=== PATIENT | female | born 1960 | race Caucasian/White ===

== ENCOUNTER 2017-04-27 11:14 | Emergency (ER) | payer MEDICARE ==
--- NOTE | 2017-04-27 13:14 | UC ---
Lower Extremity/Ankle HPI - HPI Summary HPI Summary: 57 yo F with hx RA and fibromyalgia, followed by shuttler car Dr. Belcher, who also sees Dr. Dickinson for pain control, states she has had increasing sharp, aching pain that feels like a muscle cramp on her bilateral groins and inner thighs radiating to her knees. No known injury or fall. Pt states when she sits she does not have pain, but when she stands or walks the pain is unbearable. Pt is taking flexeril, oxycodone, meloxicam and sulfasalazine for the pain without relief. No vag discharge or bleeding or external irritation. No urinary sxs. Pt has a daughter who is a heroin addict and she has small grandchildren in the house so she does not like to keep alot of narcotics around the house. - History of Current Complaint Chief Complaint: UCLowerExtremity Stated Complaint: INNER THIGH PAIN BOTH LEGS Time Seen by Provider: 04/27/17 13:12 Hx Obtained From: Patient Hx Last Menstrual Period: years ago Onset/Duration: Gradual Onset, Lasting Weeks, Still Present Severity Initially: Moderate Severity Currently: Severe Pain Intensity: 8 Pain Scale Used: 0-10 Numeric Aggravating Factor(s): Standing, Ambulation Alleviating Factor(s): Rest Able to Bear Weight: Yes - Risk Factors Septic Arthritis Risk Factor: Pre-existing Joint Disease - Allergies/Home Medications Allergies/Adverse Reactions: Allergies Allergy/AdvReac Type Severity Reaction Status Date / Time Penicillins Allergy Hives, Verified 04/27/17 11:56 throat swellings Prochlorperazine Allergy Hallucinati Verified 04/27/17 11:56 [From Compazine] ons Cortisone AdvReac Weight Verified 04/27/17 11:56 gain, problems healing Home Medications: Home Medications sulfaSALAzine TAB* [Azulfidine TAB*] 1,000 mg PO BID 04/27/17 [History Confirmed 04/27/17] PMH/Surg Hx/FS Hx/Imm Hx Previously Healthy: No - RA, fibromyalgia - Surgical History Surgical History: Yes Surgery Procedure, Year, and Place: c-sections: ,, . 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 CARDIAC CATH - NO STENT, SHOWED SMALL VESSELLS, OTHERWISE NORMAL- 07/2013. AGE 8, NECK SURGERY FOR CAT SCRATCH FEVER, [place]. Hand surgery for trigger thumb - Family History Known Family History: Positive: Hypertension - Social History Occupation: Unemployed Lives: With Family Alcohol Use: Weekly Alcohol Amount: 3-4 PER WEEK Substance Use Type: None Smoking Status (MU): Former Smoker Amount Used/How Often: PACK A DAY Have You Smoked in the Last Year: No When Did the Patient Quit Smoking/Using Tobacco: 1989 Review of Systems Constitutional: Negative Skin: Negative Eyes: Negative ENT: Negative Respiratory: Negative Cardiovascular: Negative Gastrointestinal: Negative Genitourinary: Negative Motor: Negative Neurovascular: Negative Musculoskeletal: Arthralgia, Myalgia Neurological: Negative Psychological: Negative All Other Systems Reviewed And Are Negative: Yes Physical Exam Triage Information Reviewed: Yes Appearance: Well-Appearing, Well-Nourished, Pain Distress Vital Signs: Initial Vital Signs Temp 97.5 F 04/27/17 11:52 Pulse 73 04/27/17 11:52 Resp 14 04/27/17 11:52 BP 142/87 04/27/17 11:52 Pulse Ox 99 04/27/17 11:52 Vital Signs Reviewed: Yes Eyes: Positive: Conjunctiva Clear ENT: Positive: Normal ENT inspection Neck: Positive: Supple, Nontender, No Lymphadenopathy Respiratory: Positive: Lungs clear, Normal breath sounds, No respiratory distress Cardiovascular: Positive: RRR, No Murmur, Pulses Normal, Brisk Capillary Refill Abdomen Description: Positive: Nontender, Soft, Other: - external genitalia normal Bowel Sounds: Positive: Present Musculoskeletal: Positive: Strength Intact, ROM Intact, Other: - pain on palpation left lateral hip and bilateral groin creases Neurological: Positive: Alert, Muscle Tone Normal Psychological Exam: Normal Skin: Negative: rashes, breakdown, significant lesion(s) Lower Extremity Course/Dx - Course Course Of Treatment: UA with 1 + leuks, sent for culture. Will not treat as pt does not have UTI sxs. Pt given toradol 30mg with relief, partial. xrays show no fx, DJD at sacroiliac. - Differential Dx/Diagnosis Differential Diagnosis/HQI/PQRI: Arthritis, Fracture (Closed), Sprain, Strain Provider Diagnoses: bilateral groin and thigh pain. Rheumatoid arthritis. fibromyalgia. HTN in poor control Discharge - Discharge Plan Condition: Stable Disposition: HOME Prescriptions: fentaNYL PATCH 12 MCG/HR * [Duragesic Patch 12 Mcg/Hr *] 12 mcg TRANSDERM Q72H # 3 patch MDD 09/13 patch Patient Education Materials: Sacroiliitis (ED), Arthralgia (ED) Referrals: Mik Dillard [Medical Doctor] - 4 Days (keep your scheduled appointment ) Lori Troy MD [Primary Care Provider] - Eliu Dickinson DO [Doctor of Osteopathy] - As Soon As Possible (try to get an acute appointment for this acute exacerbation of your pain ) Additional Instructions: Dr. Covarrubias has prescribed a fentanyl patch to try to tide you through this acute episode of pain. We have discussed your pain contract with Dr. Dickinson and do not intend this prescription to violate the pain contract. Keep your appointment with Dr. Belcher for Tu05/02/17. Follow up with Dr. Dickinson as soon as possible. You may need to decrease or discontinue the oxycodone while you are on the fentanyl patch if you become too drowsy. You were given an injection of ketorolac (Toradol) 30mg at 1:45pm with some relief. Your urine showed 1+ leukocytes. A urine culture was sent. We will notify you if you need antibiotics based on that result. A UTI could be contributing to your pain. Your xrays of your hips and pelvis showed no fractures. There is degenerative disease of your right sacroiliac joint. This can definitely be contributing to your pain. You may return to urgent care if you have any new or worsening symptoms.
[2017-04-27] MEDS ORDERED: Ketorolac INJ* 30 MG/ML 1 ML VIAL IM ONE (13:31)
[2017-04-27 14:00] VITALS: BP 138/72
--- NOTE | 2017-04-27 14:10 | RAD ---
Indication: Bilateral hip pain, rheumatoid arthritis. 2 views of the right hip and an AP view of the pelvis demonstrates no fracture. Pelvic ring is intact. Degenerative changes of the right sacroiliac joint is noted. IMPRESSION: Degenerative changes of the right sacroiliac joint. No fracture of either hip is noted.
== END 2017-04-27 14:37 | disposition home or self-care (01) ==
LOC: UCCORT 11:14
DX: M79.652 Pain in left thigh (principal); M79.651 Pain in right thigh; R10.30 Lower abdominal pain, unspecified; M06.9 Rheumatoid arthritis, unspecified; M79.7 Fibromyalgia; I10 Essential (primary) hypertension; Z88.0 Allergy status to penicillin; Z87.891 Personal history of nicotine dependence
CPT/HCPCS: 73523; 81003; 87086; 96372; 99212; G0463; J1885

== ENCOUNTER 2019-07-27 14:43 | Emergency (ER) | payer MEDICARE ==
--- OUTSIDE RECORDS SUMMARY | 2019-07-27 15:12 | XMS REPORT | Continuity of Care Document ---
:1960 External Reference #:[id number] Author Name Janel Gustafson NP Address [address] [place] [address] Care Team Providers Name Role Phone Lori Troy MD Care Team Information Workforce Development Vice President [phone] Ravindra Emanuel MD - Family Medicine Care Team Information Workforce Development Vice President Problems Description No Information Available Social History Type Date Description Comments Sex Female Tobacco Use Start: Unknown End: Unknown Used To Smoke Cigarettes But Quit. ETOH Use Never used alcohol Allergies, Adverse Reactions, Alerts Active Allergies Reaction Severity Comments Date Penicillins hives 03/16/2011 Cortisone excessive weight gain 03/16/2011 Compazine systemic reaction had to be given med 03/16/2011 to reverse reaction Medications Active Medications SIG Qnty Indications Ordering Date Provider Hydrocortisone apply to 144gm Eleazar Haskins, 04/09/2018 1% Cream affected twice a M.D. day Levothyroxine Sodium 1 po qd Unknown 75mcg Tablets Nexium 1 po qd 90caps Unknown 40mg Capsules DR Oxycodone HCL 5tabs Unknown 5mg Tablets Pravastatin Sodium qday Unknown Tablets Savella 2 po qday Unknown 50mg Tablets Cyclobenzaprine HCL Unknown 5mg Tablets Bradley Low Strength 2 po qday Unknown 81mg Tablets DR Fish Oil qday Unknown 1000mg Capsules Calcium 2 po qday 60tabs Unknown 1000mg Tablets Acetaminophen Extra 500tabs Unknown Strength 500mg Tablets Gabapentin 1 by mouth twice Unknown 100mg Capsules daily for 15 days Enbrel Unknown 25mg Solution Rec Immunizations Description No Information Available Vital Signs Date Vital Result Comment 07/24/2019 1:06pm Weight 181.00 lb Height 58.5 inches 4'10.50" BMI (Body Mass Index) 37.2 kg/m2 BP Systolic 144 mmHg BP Diastolic 81 mmHg Heart Rate 76 /min O2 % BldC Oximetry 97 % Body Temperature 97.3 F [place] Score 3 Pain Level 0 04/09/2018 11:30am Weight 189.00 lb Height 58.5 inches 4'10.50" BMI (Body Mass Index) 38.8 kg/m2 BP Systolic 147 mmHg BP Diastolic 78 mmHg Heart Rate 75 /min O2 % BldC Oximetry 95 % Body Temperature 97.6 F [place] Score 7 Pain Level 0 Results Description No Information Available Procedures Description No Information Available Medical Devices Description No Information Available Encounters Type Date Location Provider Dx Diagnosis Office Visit 07/24/2019 Main Office Janel Gustafson, G47.33 Obstructive sleep 1:00p [employer] apnea (adult) (pediatric) Assessments Date Code Description Provider 07/24/2019 G47.33 Obstructive sleep apnea (adult) (pediatric) Janel Gustafson NP Plan of Treatment No Information Available Functional Status Description No Information Available Mental Status Description No Information Available Referrals Description No Information Available
--- OUTSIDE RECORDS SUMMARY | 2019-07-27 15:12 | XMS REPORT | Continuity of Care Document ---
:1960 External Reference #:[id number] Author Name Janel Gustafson NP (transmitted by agent of provider Sammi Hernandez) Address [address] [place] [address] Care Team Providers Name Role Phone Lori Troy MD Care Team Information Steam Fitter Supervisor Maintenance [phone] Ravindra Emanuel MD - Family Medicine Care Team Information Steam Fitter Supervisor Maintenance Problems Description No Information Available Social History [...] Oximetry 97 % Body Temperature 97.3 F [place] Score 3 Pain Level 0 04/09/2018 11:30am Weight 189.00 lb Height 58.5 inches 4'10.50" BMI (Body Mass Index) 38.8 kg/m2 BP Systolic 147 mmHg BP Diastolic 78 mmHg Heart Rate 75 /min O2 % BldC Oximetry 95 % Body Temperature 97.6 F [place] Score 7 Pain Level 0 Results Description No Information Available Procedures Description No Information Available Medical Devices Description No Information Available Encounters Description No Information Available Assessments Description No Information Available Plan of Treatment No Information Available Functional Status Description No Information Available Mental Status Description No Information Available Referrals Description No Information Available
--- OUTSIDE RECORDS SUMMARY | 2019-07-27 15:12 | XMS REPORT | Summary of Care ---
:1960 Author Organization [facility] Address [address] [place] [id number] Care Team Providers Name Role Phone Ravindra Emanuel MD Primary Care Provider Reason for Visit Reason Comments Follow-up Encounter Details Date Type Department Care Team Description 07/17/2019 Office Visit Sharon Dillard, Seronegative rheumatoid arthritis (Primary Dx); Rheumatology MD Mik High risk medication use [address] Suite [facility] [address] [place] [address] [phone] Allergies Active Allergy Reactions Severity Noted Date Comments Prochlorperazine 11/05/2013 Patient had paranoia Edisylate Cortisone 11/05/2013 Gain weight, dont heal Methotrexate Derivatives Other (See 08/24/2016 transaminitis alopecia Comments) Penicillins Hives High 11/05/2013 documented as of this encounter (statuses as of 07/18/2019) Medications Medication Sig Dispensed Refills Start Date End Date Status pravastatin Take 20 mg by 0 Active (PRAVACHOL) 20 MG mouth daily. tablet esomeprazole (NEXIUM) Take 40 mg by 0 Active 40 MG capsule mouth Two Times Daily. metformin Take 850 mg by 0 Active (GLUCOPHAGE) 850 MG mouth daily with tablet breakfast. levothyroxine Take 50 mcg by 0 Active (SYNTHROID, mouth daily. LEVOTHROID) 50 MCG tablet ramipril (ALTACE) 10 Take 10 mg by 0 Active MG capsule mouth daily. aspirin 81 MG tablet Take 81 mg by 0 Active mouth daily. Acetaminophen Take by mouth. 0 Active (TYLENOL PO) Misc. Devices Use as directed. 1 each 0 12/26/2013 Active MISCIndications: Patient is s/p History of eye evisceration of evisceration the right eye on 12/17/13. Please fit w/ scleral shell after about 6-8 wks after surgery date. oxyCODONE Take 5 mg by mouth 0 Active (ROXICODONE) 5 MG Two times daily immediate release before meals. tablet citalopram (CELEXA) Take 100 mg by 0 Active 40 MG tablet mouth daily alprazolam (XANAX) Take 0.25 mg by 0 Active 0.25 MG tablet mouth nightly as needed for Anxiety gabapentin 0 11/22/2017 Active (NEURONTIN) 100 MG capsule sulfaSALAzine Take 1 tablet by 180 tablet 1 05/15/2018 Active (AZULFIDINE) 500 MG mouth Two times tabletIndications: daily with meals Rheumatoid arthritis, Take 2 tabs po tid involving unspecified site, unspecified rheumatoid factor presence cyclobenzaprine 0 04/27/2018 Active (FLEXERIL) 10 MG tablet etanercept (ENBREL) Inject into the 0 Active 25 MG injection skin predniSONE 5 MG Oral 5 mg tid for 5 30 tablet 0 07/17/2019 Active Tablet (DELTASONE) days, then 5 mg bid for 5 days, then 5 mg qday fir 5 days. 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 Alcohol Use Drinks/Week oz/Week Comments Yes 1 Glasses of wine 1.0 Sex Assigned at Date Recorded Not on file Job Start Date Occupation Industry Not on file Not on file Not on file Travel History Travel Start Travel End No recent travel history available. documented as of this encounter Last Filed Vital Signs Vital Sign Reading Time Taken Comments Blood Pressure 136/86 07/17/2019 2:49 PM EST Pulse 80 07/17/2019 2:49 PM EST Temperature 36.7 07/17/2019 2:49 PM EST C (98 F) Respiratory Rate 14 07/17/2019 2:49 PM EST Oxygen Saturation 96% 07/17/2019 2:49 PM EST Inhaled Oxygen Concentration - - Weight 83.5 kg (184 lb) 07/17/2019 2:49 PM EST Height 149.9 cm (4' 11") 07/17/2019 2:49 PM EST Body Mass Index 37.16 07/17/2019 2:49 PM EST documented in this encounter Progress Notes Mik Dillard MD - 07/17/2019 3:30 PM EST Subjective: Patient ID: [id number] Villeda is a 59 y.o. female. The patient is seen today as an add-on. She has history of seronegative rheumatoid arthritis. She was last seen April 16, 2019. She is currently on Enbrel 50 mg subcutaneous. Next appointment is scheduled for October 2018. She has had increased pain in her neck and in her lower back for the lastmon. Intensity can be as bad as 6 to 7/10, usually worse in the afternoon, not associated with significant swelling in her hands or with any rashes. RHEUMATOLOGIC REVIEW OF SYSTEMS: Otherwise unremarkable. ASSESSMENT: The patient has a history of acute low back pain and neck pain. Etiologies include potentially flare-up of her seronegative arthritis versus muscle spasm versus flare of fibromyalgia. PLAN: 1. Toradol 30 mg IM today. 2. Prednisone 5 mg t.i.d. for 5 days, then 5 mg b.i.d. for 5 days, then 5 mg daily for 5 days, then stop. 3. If no improvement, the patient will call me. 4. She will keep her October appointment. HPI Ro has a past medical history of Anxiety, Blurred vision, Carpal tunnel syndrome, Cataract, Depression, Diabetes mellitus, Fibromyalgia, GERD ( gastroesophageal reflux disease), Headache(784.0), Hearing loss, Hyperlipidemia , Hypertension, Joint pain, Sleep apnea (9 yrs), Thyroid disease, and Vision abnormalities. Ro has a past surgical history that includes Cardiac catheterization ( May 2013); Evisceration; section (1980, 1982); Carpal tunnel release (Left, 2014); Neck surgery (1969, 1987); and Trigger finger release ( Right, 03/04/2016). Her family history includes Cancer in her father, maternal aunt, and paternal aunt; Diabetes in her maternal aunt; Hypertension in her maternal aunt. Ro reports that she has quit smoking. Her smoking use included cigarettes. She has never used smokeless tobacco. She reports current alcohol use of about 1.0 standard drinks of alcohol per week. No history on file for drug. Ro has a current medication list which includes the following prescription(s ): acetaminophen, alprazolam, aspirin, citalopram, cyclobenzaprine, esomeprazole , etanercept, gabapentin, levothyroxine, metformin, misc. devices, oxycodone, pravastatin, prednisone, ramipril, and sulfasalazine. Ro is allergic to penicillins; compazine [prochlorperazine edisylate]; cortisone; and methotrexate derivatives. Review of Systems Constitutional: Negative. HENT: Negative. Eyes: Negative. Respiratory: Negative. Cardiovascular: Negative. Gastrointestinal: Negative. Endocrine: Negative. Genitourinary: Negative. Musculoskeletal: Positive for arthralgias, back pain and neck pain. Skin: Negative. Allergic/Immunologic: Negative. Neurological: Negative. Hematological: Negative. Psychiatric/Behavioral: Negative. Objective: Physical Exam Vitals signs reviewed. Constitutional: Appearance: She is well-developed. HENT: Head: Normocephalic and atraumatic. Eyes: Conjunctiva/sclera: Conjunctivae normal. Neck: Thyroid: No thyromegaly. Trachea: No tracheal deviation. Cardiovascular: Rate and Rhythm: Normal rate and regular rhythm. Pulmonary: Effort: Pulmonary effort is normal. No respiratory distress. Musculoskeletal: General: Tenderness present. No swelling. Skin: General: Skin is warm and dry. Neurological: Mental Status: She is alert and oriented to person, place, and time. documented in this encounter Plan of Treatment Date Type Specialty Care Team Description 10/23/2019 Office Visit Rheumatology Mik Dillard MD [address] [place] [address] [address] [place], [place] [id number] [phone] Health Maintenance Due Date Last Done Comments MMR Vaccines (1 of 1 - Standard [birth year]15/1961 series) DTaP,Tdap,and Td Vaccines (1 - 01/15/1967 Tdap) HIV Screening 01/15/1973 Cervical Cancer Screening 5 years 01/15/1981 Breast Cancer Screening 2 years 01/15/2010 Colon Cancer Screening 10 yrs 01/15/2010 Influenza Vaccine 06/11/2019 08/26/2015 Pneumococcal Vaccine: 65+ Years (1 01/15/2025 02/18/2015 of 2 - PCV13) Pneumococcal Vaccine: Pediatrics Aged Out 02/18/2015 No longer eligible based on (0 to 5 Years) and At-Risk patient's age to complete Patients (6 to 64 Years) this topic Hepatitis C Screening (B. Completed 11/29/2017 [id number]) HIB Vaccines Aged Out No longer eligible based on patient's age to complete this topic Hepatitis A Vaccines Aged Out No longer eligible based on patient's age to complete this topic Hepatitis B Vaccines Aged Out No longer eligible based on patient's age to complete this topic IPV Vaccines Aged Out No longer eligible based on patient's age to complete this topic Varicella Vaccines Aged Out No longer eligible based on patient's age to complete this topic documented as of this encounter Results Not on filedocumented in this encounter Visit Diagnoses Diagnosis Seronegative rheumatoid arthritis - Primary Rheumatoid arthritis High risk medication use Encounter for long-term (current) use of other medications documented in this encounter Administered Medications Medication Order MAR Action Action Date Dose Rate Site ketorolac (TORADOL) Given 07/17/2019 3:09 PM EST 30 mg Left Deltoid injection 30 mg 30 mg, Intramuscular, Once, Mon07/17/19 at 1515, For 1 dose documented in this encounter
== END 2019-07-27 15:12 | disposition left against medical advice (07) ==
LOC: UCCORT 14:43
DX: Z53.21 Procedure and treatment not carried out due to patient leaving prior to being seen by health care provider (principal)